=== PATIENT | male | born 1960 | race African-American/Black ===

== ENCOUNTER 2016-10-24 13:14 | Inpatient (IN) ==
[2016-10-24] MEDS ORDERED: 0.9 % Sodium Chloride 1,000 ML IVC ONE (15:14)
--- NOTE | 2016-10-24 15:18 | Emergency Department Note ---
Disposition Clinical Impression: Hypercalcemia Failure to thrive Qualifiers: Failure to thrive age range: in adult Qualified Code(s): R62.7 - Adult failure to thrive Disposition: Admitted As Inpatient Condition: Good Time of Disposition: 17:17 Weakness HPI - General Chief complaint: ED Weakness Stated complaint: Weakness Time Seen by Provider: 10/24/16 15:07 Source: patient Limitations: no limitations Nursing Notes Reviewed: Yes Vital Signs Reviewed: Yes - History of Present Illness HPI Narrative: 56-year-old who presents emergency Department complaining of generalized weakness. Patient has a history of lung cancer was to restart his chemotherapy. Pt Subjective Complaint: generalized weakness/fatigue Onset (ago): day(s) Duration: constant Location: generalized Pain Scale: 0 - Related Data Previous Rx's Medication Instructions Recorded Prochlorperazine Maleate 10 mg PO Q8HR PRN #90 tablet 07/21/16 [Compazine] Furosemide [Lasix] 40 mg PO DAILY #30 tablet 08/01/16 PredniSONE 10 mg PO DAILY 18 Days 08/01/16 Chair, Shower [SHOWER CHAIR] 1 each .ROUTE AD #1 each 08/04/16 Lactose-Reduced Food [Ensure High 1 bottle PO TID #90 can 08/28/16 Protein] Budesonide/Formoterol 160/4.5 1 puff IH BIDR #1 hfa.aer.ad 09/19/16 [Symbicort 160/4.5] Metoprolol [Lopressor] 12.5 mg PO BID #60 tablet 09/19/16 Ondansetron [Zofran] 4 mg PO Q8HR PRN #90 tablet 09/19/16 Dronabinol [Marinol] 2.5 mg PO BID #60 capsule 10/16/16 MetroNIDAZOLE [Flagyl] 500 mg PO TID #30 tablet 10/16/16 OxyCODONE Immed Rel [Roxicodone 5 10 mg PO Q8HR PRN #90 tablet 10/16/16 MG] Allergies Allergy/AdvReac Type Severity Reaction Status Date / Time No Known Allergies Allergy Verified 10/16/16 08:51 Constitutional: Denies: fever, chills, weakness, weight change Eyes: Denies: eye pain, eye discharge, vision change ENT ED: Denies: ear pain, throat pain, dental pain, hearing loss, epistaxis, congestion, dysphagia Cardiovascular: Denies: chest pain, palpitations, dyspnea on exertion, edema, syncope Respiratory: Denies: cough, dyspnea, wheezes, hemoptysis, stridor Gastrointestinal: Reports: other (4 by mouth intake). Denies: abdominal pain, nausea, vomiting, diarrhea, constipation, hematemesis, melena, hematochezia Genitourinary: Denies: urgency, dysuria, frequency, hematuria Musculoskeletal: Denies: back pain, neck pain, arthralgia, myalgia Integumentary: Denies: rash, abrasion, lesions Neurological: Reports: weakness. Denies: headache, numbness, paresthesias, confusion, abnormal gait, vertigo Psychiatric: Denies: anxiety, depression, suicidal thoughts, homicidal thoughts , auditory hallucinations, visual hallucinations Endocrine: Denies: fatigue Hematological/Lymphatic: Denies: easy bleeding, easy bruising Allergic/Immunologic: Denies: facial swelling, urticaria Past Medical History - Past Medical History Medical history: Reports: cancer, hypertension Surgical history: Reports: no surgical history Psychiatric history: Reports: no psych history - Social History Smoking Status: Current every day smoker Smokeless Tobacco Status: No Alcohol use: Reports: heavy Drug use: Reports: none Physical Exam - General Limitations: no limitations General appearance: alert - Head Head exam: atraumatic, normocephalic, normal inspection - Eye Eye exam: Present: normal appearance, PERRL, EOMI - ENT ENT exam: normal exam, normal oropharynx, mucous membranes moist - Neck Neck exam: Present: normal inspection, full ROM, trachea midline - Chest Chest inspection: Present: normal inspection, symmetric chest wall rise - Respiratory Respiratory exam: Present: normal lung sounds bilaterally - Cardiovascular Cardiovascular exam: Present: regular rate, normal rhythm, normal heart sounds - Abdominal Exam Abdominal exam: Present: soft, Non-Tender. Absent: tenderness, distention, guarding, rebound, rigidity - Extremities Exam Extremities exam: Present: normal inspection, full ROM. Absent: tenderness, pedal edema - Expanded Lower Extremity Exam Neurovascular/Tendon exam: Absent: motor deficit, sensory deficit, tendon deficit Gait: not tested/not observed - Back Exam Back exam: Present: normal inspection, full ROM. Absent: tenderness - Neurological Exam Neurological exam: Present: alert, oriented X3 - Psychiatric Psychiatric exam: Present: normal affect, normal mood - Skin Skin exam: Present: warm, dry, intact, normal color Course - Consultations Consultation #1: Discussed with , who gave orders for dexamethasone fluid bolus and Zomeda. Also to admit to hospitalist. Time: 17:16 Consultation #2: Discussed with Randa Aguilar nurse practitioner will admit. Time: 17:36 Vital Signs Temperature 97.4 F L 10/24/16 14:15 Pulse Rate 115 10/24/16 14:15 Respiratory Rate 16 10/24/16 14:15 Blood Pressure 99/74 10/24/16 14:15 O2 Sat by Pulse Oximetry 95 10/24/16 14:15 Temperature 97.4 F L 10/24/16 14:15 Pulse Rate 91 10/24/16 16:40 Respiratory Rate 16 10/24/16 17:46 Blood Pressure 126/93 10/24/16 17:46 O2 Sat by Pulse Oximetry 100 10/24/16 16:40 Oxygen Delivery Oxygen Delivery Room Air Weakness - Lab Data Result diagrams: 10/24/16 16:39 10/24/16 16:39 Lab Results 10/24/16 10/24/16 10/24/16 Range/Units 16:39 16:39 16:39 WBC 9.1 (4.3-11.1) K/mcL RBC 4.11 L (4.19-5.50) M/mcL Hgb 14.1 (12.9-16.9) g/dL Hct 39.3 (37.5-50.1) % MCV 95.6 (83.0-100.0) fL MCH 34.3 H (28.0-33.3) pg MCHC 35.9 H (31.6-35.5) g/dL RDW 12.8 (11.5-14.5) % Plt Count 234 (140-400) K/mcL MPV 9.0 L (9.4-12.4) fL Immature Gran % 0.7 (0-4) % Seg Neutrophils % 65.8 % Lymphocytes % 15.3 % Monocytes % 17.9 % Eosinophils % 0.2 % Basophils % 0.1 % Neutrophils # 6.0 (1.6-8.9) K/mcL Lymphocytes # 1.4 (0.6-4.6) K/mcL Monocytes # 1.6 H (0.0-1.3) K/mcL Eosinophils # 0.0 (0.0-0.6) K/mcL Basophils # 0.0 (0.0-0.2) K/mcL ESR 49 H (0-10) mm/hr Sodium 124 L (136-145) mEq/L Potassium 3.7 (3.5-4.5) mEq/L Chloride 84 L (98-109) mEq/L Carbon Dioxide 23 (19-29) mEq/L BUN 40 H (8-26) mg/dL Creatinine 0.93 (0.72-1.25) mg/dL Est GFR ( Amer) > 60 (> 60) Est GFR (Non-Af Amer) > 60 (> 60) BUN/Creatinine Ratio 43 H (6-26) Glucose 59 L (70-99) mg/dL Calculated Osmolality 266 L (280-300) Lactic Acid (0.5-2.2) mmol/L Calcium 15.6 H* (8.6-10.8) mg/dL Total Bilirubin 1.0 (0.2-1.2) mg/dL AST 34 (5-34) Units/L ALT 13 (0-55) Units/L Alkaline Phosphatase 92 (38-126) Units/L Troponin I (0-0.03) ng/mL Serum Total Protein 7.5 (6.0-8.3) g/dL Albumin 2.8 L (3.5-5.0) g/dL Globulin 4.7 H (2.4-3.5) g/dL Albumin/Globulin Ratio 0.6 L (1.1-2.2) 10/24/16 10/24/16 Range/Units 16:39 16:39 WBC (4.3-11.1) K/mcL RBC (4.19-5.50) M/mcL Hgb (12.9-16.9) g/dL Hct (37.5-50.1) % MCV (83.0-100.0) fL MCH (28.0-33.3) pg MCHC (31.6-35.5) g/dL RDW (11.5-14.5) % Plt Count (140-400) K/mcL MPV (9.4-12.4) fL Immature Gran % (0-4) % Seg Neutrophils % % Lymphocytes % % Monocytes % % Eosinophils % % Basophils % % Neutrophils # (1.6-8.9) K/mcL Lymphocytes # (0.6-4.6) K/mcL Monocytes # (0.0-1.3) K/mcL Eosinophils # (0.0-0.6) K/mcL Basophils # (0.0-0.2) K/mcL ESR (0-10) mm/hr Sodium (136-145) mEq/L Potassium (3.5-4.5) mEq/L Chloride (98-109) mEq/L Carbon Dioxide (19-29) mEq/L BUN (8-26) mg/dL Creatinine (0.72-1.25) mg/dL Est GFR ( Amer) (> 60) Est GFR (Non-Af Amer) (> 60) BUN/Creatinine Ratio (6-26) Glucose (70-99) mg/dL Calculated Osmolality (280-300) Lactic Acid 2.5 H (0.5-2.2) mmol/L Calcium (8.6-10.8) mg/dL Total Bilirubin (0.2-1.2) mg/dL AST (5-34) Units/L ALT (0-55) Units/L Alkaline Phosphatase (38-126) Units/L Troponin I 0.02 (0-0.03) ng/mL Serum Total Protein (6.0-8.3) g/dL Albumin (3.5-5.0) g/dL Globulin (2.4-3.5) g/dL Albumin/Globulin Ratio (1.1-2.2) - Radiology Data Radiology results reviewed: Yes I reviewed the patient's radiology results. Chest X-Ray 10/24/16 15:14 IMPRESSION: 1. There is a small to moderate right-sided pleural effusion. 2. Scattered nodular opacities are seen in the lungs bilaterally. This is better evaluated on the recent CT from 10/03/2016. D/ / Phil Solis MD / Phil Solis MD Interpreting Provider: Phil Solis MD - EKG Data EKG attestation: Yes I reviewed and interpreted this EKG. EKG shows normal: sinus rhythm Rate: tachycardia Rhythm: NSR Interpretation: no acute changes
[2016-10-24 16:45] LABS: Basophils % 0.1 %; Eosinophils % 0.2 %; Hematocrit 39.3 % (37.5-50.1); Hemoglobin 14.1 g/dL (12.9-16.9); Immature Granulocytes % 0.7 % (0-4); Lymphocytes # 1.4 K/mcL (0.6-4.6); Lymphocytes % 15.3 %; Mean Corpuscular HGB Conc 35.9 g/dL (31.6-35.5); Mean Corpuscular Hemoglobin 34.3 pg (28.0-33.3); Mean Corpuscular Volume 95.6 fL (83.0-100.0); Monocytes # 1.6 K/mcL (0.0-1.3); Monocytes % 17.9 %; Platelet Count 234 K/mcL (140-400); Red Blood Count 4.11 M/mcL (4.19-5.50); Red Cell Distribution Width 12.8 % (11.5-14.5); Segmented Neutrophils % 65.8 %
[2016-10-24 17:04] LABS: Alanine Aminotransferase 13 Units/L (0-55); Albumin 2.8 g/dL (3.5-5.0); Albumin/Globulin Ratio 0.6 (1.1-2.2); Alkaline Phosphatase 92 Units/L (38-126); Aspartate Amino Transferase 34 Units/L (5-34); BUN/Creatinine Ratio 43 (6-26); Blood Urea Nitrogen 40 mg/dL (8-26); Carbon Dioxide 23 mEq/L (19-29); Chloride 84 mEq/L (98-109); Globulin 4.7 g/dL (2.4-3.5); Glucose 59 mg/dL (70-99); Osmolality,Calculated 266 (280-300); Potassium 3.7 mEq/L (3.5-4.5); Sodium 124 mEq/L (136-145); Total Protein 7.5 g/dL (6.0-8.3); eGFR For African Americans > 60 (> 60); eGFR For Non-African Americans > 60 (> 60)
[2016-10-24 17:10] LABS: Calcium 15.6 mg/dL (8.6-10.8)
[2016-10-24] MEDS ORDERED: Dexamethasone 4 MG/ML VIAL IVP ONE (17:15)
[2016-10-24] MEDS ORDERED: Zoledronic Acid (Zometa) 4 MG in 0.9 % Sodium Chloride 100 ML IV ONE (17:15)
[2016-10-24] MEDS ORDERED: Naloxone 0.4 MG/ML INJ IVP PRN (21:04)
[2016-10-24] MEDS ORDERED: *HR* Morphine 2 MG/ML SYRINGE IVP PRN (21:11)
[2016-10-24] MEDS ORDERED: Acetaminophen 325 MG TABLET PO PRN (21:11)
[2016-10-24] MEDS ORDERED: Ondansetron 4 MG/2 ML VIAL IVP PRN (21:11)
--- NOTE | 2016-10-24 21:39 | Internal Med History&Physical ---
<Dianne Hinkle - Last Filed: 10/24/16 23:12> Date of Encounter: 10/24/16 Time of Encounter: 21:39 Assessment and Plan (1) Hypercalcemia Current visit: Yes Status: Acute Patient with lab calcium of 15.6. Calcium corrected for albumin 16.5. Elevated calcium likely secondary to patient squamous cell carcinoma of the lung. EKG showed no acute changes. Patient is refusing to communicate with stuff. Unknown if this is secondary to effects from the hypercalcemia. Will continue to monitor patient's mental status. He appears dehydrated on exam. Patient given dose of zomeda in the ED. Will start aggressive IV fluids. 1. Normal saline 200mls/hr 2. Patient given appropriate dose of zomeda in ED 3. Will recheck calcium/ ionized calcium/ albumin in the morning 4. Cardiac monitoring. (2) Clostridium difficile diarrhea Current visit: Yes Status: Acute Patient diagnosed with c.diff 10/16/2016 and started on PO flagyl. Will start IV flagyl and transition to PO if patient okay to swallow. If patient develops worsening diarrhea will start vancomycin. Contact precautions. 1. IV flagyl 2. Contact precautions. (3) Squamous cell carcinoma of lung, stage III Current visit: Yes Status: Acute Patient with history of squamous cell carcinoma of the lung diagnosed 04/2016. Patient is s/p thoracic chemotherapy with cisplatin/etoposide finished 06/2016. Last CT scan done 10/03/2016 showed increase in bilateral lung nodules, new pleural effusion and new inferior anterior mediastinal mass. Last oncology appointment on 10/16/2016 it states that patient was not ready to change his code status at that time or consider hospice. Unable to have code discussion with patient on admission. 1. Consult placed to oncology - Dr. Villalpando called from ED 2. Supportive care with supplemental oxygen as needed, pain medication, fluids 3. Will need to have code discussion, palliative care consult if patient expresses interest. Qualifiers: Laterality: right Qualified Code(s): C34.91 - Malignant neoplasm of unspecified part of right bronchus or lung (4) Hyponatremia Current visit: Yes Status: Acute Patient with chronic hyponatremia, though this is lower than previous. Will monitor. 1. BMP tomorrow (5) Severe protein-calorie malnutrition Current visit: No Status: Chronic Patient is cachectic on exam. Patient takes marinol at home and ensure nutritional supplementation. Will continue marinol and consult nutrition. 1. Marinol continue home dose 2. Consult placed to nutrition (6) Alcohol abuse Current visit: No Status: Chronic (7) Tobacco abuse Current visit: No Status: Chronic (8) DVT prophylaxis Current visit: Yes Status: Acute Lovenox 40mg QD sub-Q for DVT prophylaxis. Internal Medicine - H&P: HPI Chief complaint: Weakness Admitted From: Emergency Dept History of present illness: Mr. Campoverde is a 56 year old male with PMH including lung cancer, GI bleed, chronic anemia, and EtOH use who presents to the ED for generalized weakness. Patient is generally refusing to communicate with staff or physicians on the floor so most history and review of symptoms obtained from ED note and previous documentation. He does shake his head when asked if he has any pain, chest pain , or shortness of breath. 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 Patient is s/p thoracic chemotherapy with cisplatin/etoposide finished 06/2016. Last CT scan done 10/03/2016 showed increase in bilateral lung nodules, new pleural effusion and new inferior anterior mediastinal mass. Last oncology appointment on 10/16/2016 it states that patient was not ready to change his code status at that time or consider hospice. Unable to have code discussion with patient on admission. Patient was also recently diagnosed with C. diff on 10/16/2016 and started on PO flagyl In the ED, patient was afebrile, vital signs within normal limits. Labs revealed sodium of 124, calcium of 15.6 and lactic acid of 2.5. Dr. Villalpando ( oncology) consulted from the ED. She recommended admission, fluid bolus, dexamethasone and zomeda. On exam, patient does open eyes to voice but refuses to talk. He is cachectic and appears very weak. He has a wet cough during exam. Lungs with decreased air movement, no wheezing, crackles or rhonci. Heart regular rate and rhythm. Abdomen soft, nontender. Past Med Surg Social Fam HX - Past Medical History Medical history: cancer, hypertension Psychiatric history: no psych history - Past Surgical History Surgical History: no surgical history - Social History Smoking Status: Current every day smoker Smokeless Tobacco Status: No Alcohol use: heavy Drug use: none - Family History Mother Adopted: No Family Member Ethnicity: Non- Living Status: Still Living Hx Family Cardiac Disorders: Yes Internal Medicine - H&P: Meds Prochlorperazine Maleate [Compazine] 10 mg PO Q8HR PRN #90 tablet 07/21/16 [Rx] Furosemide [Lasix] 40 mg PO DAILY #30 tablet 08/01/16 [Rx] PredniSONE 10 mg PO DAILY 18 Days 08/01/16 [Rx] Lactose-Reduced Food [Ensure High Protein] 1 bottle PO TID #90 can 08/28/16 [Rx] Budesonide/Formoterol 160/4.5 [Symbicort 160/4.5] 1 puff IH BIDR #1 hfa.aer.ad 09/19/16 [Rx] Metoprolol [Lopressor] 12.5 mg PO BID #60 tablet 09/19/16 [Rx] Ondansetron [Zofran] 4 mg PO Q8HR PRN #90 tablet 09/19/16 [Rx] Dronabinol [Marinol] 2.5 mg PO BID #60 capsule 10/16/16 [Rx] OxyCODONE Immed Rel [Roxicodone 5 MG] 10 mg PO Q8HR PRN #90 tablet 10/16/16 [Rx] Aspirin Enteric Coated [Aspirin EC] 81 mg PO DAILY 10/24/16 [History] Atorvastatin Calcium [Lipitor] 20 mg PO HS 10/24/16 [History] Folic Acid 1 mg PO DAILY 10/24/16 [History] Hydrochlorothiazide 12.5 mg PO DAILY 10/24/16 [History] Allergies No Known Allergies Allergy (Verified 10/16/16 08:51) ROS unobtainable: other (Patient refuses to communicate) All Systems PM: A 10-system review of systems was performed and is negative for pertinent findings except as documented above in the HPI. - Constitutional Constitutional: no fever(s) - Cardiovascular Cardiovascular ROS IM: no chest pain - Respiratory Respiratory: no dyspnea - Gastrointestinal Gastrointestinal: no abdominal pain - Constitutional Vitals: Temp Pulse Resp BP Pulse Ox 97.1 F L 77 15 138/96 97 10/24/16 18:30 10/24/16 18:30 10/24/16 18:30 10/24/16 18:30 10/24/16 18:30 General appearance: Present: cachectic. Absent: cooperative - Head Head exam: Present: atraumatic, normal inspection, normocephalic - Eye Eye exam: Present: normal appearance - ENT ENT exam: Present: mucous membranes dry - Respiratory Respiratory exam: Absent: decreased breath sounds, rales, respiratory distress, rhonchi, wheezes, tachypnea - Cardiovascular Cardiovascular exam: Present: RRR - GI/Abdominal GI/Abdominal exam: Present: soft. Absent: rebound, rigid, tenderness - Extremities Exam Extremities exam: Present: normal inspection. Absent: pedal edema - Neurological Exam Neurological exam: Present: alert Internal Med - H&P Results - Labs CBC & Chem 7: 10/24/16 16:39 10/24/16 16:39 <Kellie Ross - Last Filed: 10/25/16 06:15> Date of Encounter: 10/24/16 Assessment and Plan (1) Hypercalcemia of malignancy Current visit: Yes Status: Acute Likely due to squamous cell lung cancer. Treat with IV normal saline infusion and zolidronic acid. Oncology consult Internal Medicine - H&P: HPI History of present illness: Mr. Campoverde is a 56 year old male All Systems PM: A 10-system review of systems was performed and is negative for pertinent findings except as documented above in the HPI. - Constitutional Vitals: Temp Pulse Resp BP Pulse Ox 97.5 F L 96 16 129/85 94 L 10/25/16 03:55 10/25/16 03:55 10/25/16 03:55 10/25/16 03:55 10/25/16 03:55 Internal Med - H&P Results - Labs CBC & Chem 7: 10/24/16 16:39 10/25/16 04:15 Labs: BMP 10/25/16 04:15 Sodium 129 L Potassium 3.4 L Chloride 91 L Carbon Dioxide 23 BUN 44 H Creatinine 0.89 Glucose 91 Calcium 13.8 H* Urine 10/25/16 Range/Units 03:55 Urine Color Yellow (Yellow) Urine Clarity Clear (Clear) Urine pH 5.5 (5.0-8.0) pH Units Ur Specific [place] 1.018 (1.010-1.025) Urine Protein Negative (Neg-Trace) mg/dL Urine Glucose (UA) Normal (Normal) mg/dL - Impressions ITS Impressions Chest X-Ray 10/24/16 15:14 IMPRESSION: 1. There is a small to moderate right-sided pleural effusion. 2. Scattered nodular opacities are seen in the lungs bilaterally. This is better evaluated on the recent CT from 10/03/2016. D/ / Phil Solis MD / Phil Solis MD Interpreting Provider: Phil Solis MD - Attending Attestation I performed a history and physical examination of the patient and discussed his management with the Resident/Biological Sciences Instructor (Dr Hinkle). I reviewed the residents note and agree with the documented findings and plan of care, with additions as below. 56 y/o male with squamous cell lung cancer, presented with generalized weakness and noted to have hypercalcemia corrected calcium of 16.5, likely related to squamous cell lung cancer. O/E He is cachectic and confused. Will treat him with intravenous normal saline infusion and zoledronic acid. Monitor calcium levels. Oncology consultation.
[2016-10-24] MEDS: Budesonide/Formoterol 160/4.5 MDI IH SCH (23:11)
[2016-10-24] MEDS: 0.9 % Sodium Chloride 1,000 ML IVC SCH (23:51)
[2016-10-25] MEDS: MetroNIDAZOLE 500 MG/100 ML 500 MG/100 ML BAG IVPB SCH ×3 (00:59→16:50)
[2016-10-25 04:47] LABS: Ionized Calcium 2.02 mmol/L (1.15-1.35)
[2016-10-25 04:58] LABS: BUN/Creatinine Ratio 49 (6-26); Blood Urea Nitrogen 44 mg/dL (8-26); Carbon Dioxide 23 mEq/L (19-29); Chloride 91 mEq/L (98-109); Glucose 91 mg/dL (70-99); Magnesium 1.3 mg/dL (1.6-2.6); Osmolality,Calculated 279 (280-300); Phosphorous 3.8 mg/dL (2.3-4.7); Potassium 3.4 mEq/L (3.5-4.5); Sodium 129 mEq/L (136-145); eGFR For African Americans > 60 (> 60); eGFR For Non-African Americans > 60 (> 60)
[2016-10-25 05:12] LABS: Calcium 13.8 mg/dL (8.6-10.8)
[2016-10-25 05:32] LABS: Bilirubin,Urine Negative (Negative); Blood,Urine Negative (Negative); Clarity,Urine Clear (Clear); Color,Urine Yellow (Yellow); Glucose,Urine (UA) Normal (Normal); Ketones,Urine 15 mg/dL (Negative); Leukocyte Esterase,Urine Negative (Negative); Nitrite,Urine Negative (Negative); PH,Urine 5.5 pH Units (5.0-8.0); Protein,Urine Negative (Neg-Trace); Specific Gravity,Urine 1.018 (1.010-1.025); Urobilinogen,Urine Normal (Normal)
[2016-10-25] MEDS: 0.9 % Sodium Chloride 1,000 ML IVC SCH ×4 (06:25→21:10)
[2016-10-25] MEDS: Budesonide/Formoterol 160/4.5 MDI IH SCH ×2 (07:50→21:54)
[2016-10-25] MEDS ORDERED: hydroCHLOROthiazide 25 MG TABLET PO SCH (09:00)
[2016-10-25] MEDS: Aspirin Enteric Coated 81 MG Tablet PO SCH (09:36)
[2016-10-25] MEDS: Folic Acid 1 MG TABLET PO SCH (09:36)
[2016-10-25] MEDS: *HR* Enoxaparin 40 MG/0.4 ML SYRINGE SQ SCH (09:40)
[2016-10-25] MEDS: (Ensure High Protein] 1 BOTTLE) PO SCH ×2 (09:42→13:44)
[2016-10-25] MEDS ORDERED: Magnesium Sulfate 2 GM in D5% in Water 100 ML IVPB ONE (13:48)
--- NOTE | 2016-10-25 13:50 | Electrocardiograph Report ---
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
--- NOTE | 2016-10-25 14:14 | Internal Med Progress Note ---
Date of Encounter: 10/25/16 Time of Encounter: 14:12 - Assessment and plan (1) Clostridium difficile diarrhea Current Visit: Yes Status: Acute Assessment and plan: Patient diagnosed with c.diff 10/16/2016 and started on PO flagyl. Will conitnue IV flagyl for now. If patient develops worsening diarrhea will start vancomycin. Contact precautions. (2) Hypercalcemia of malignancy Current Visit: Yes Status: Acute Assessment and plan: was given Zomeda at ED. continue IVF for now, will decrease the rate to 125 today. calcium levels have improved to 13 today. contineu to monitor. asymptomatic at present. most likely a paraneoplastic syndrome from lung cancer, oncology has been consulted (3) Hyponatremia Current Visit: Yes Status: Acute Assessment and plan: may be SIADH from lung cancer, however has imporved with IVF will send urne sodium today, cotnineu to monitor the sodium levels asymptomatic. (4) Squamous cell carcinoma of lung, stage III Current Visit: Yes Status: Acute Assessment and plan: Patient with history of squamous cell carcinoma of the lung diagnosed 04/2016. Patient is s/p thoracic chemotherapy with cisplatin/etoposide finished 06/2016. Last CT scan done 10/03/2016 showed increase in bilateral lung nodules, new pleural effusion and new inferior anterior mediastinal mass. Last oncology appointment on 10/16/2016 it states that patient was not ready to change his code status at that time or consider hospice. 1. Consult placed to oncology - Dr. Villalpando called from ED, will follow recommendation 2. Supportive care with supplemental oxygen as needed, pain medication, fluids Qualifiers: Laterality: right Qualified Code(s): C34.91 - Malignant neoplasm of unspecified part of right bronchus or lung (5) Severe protein-calorie malnutrition Current Visit: No Status: Chronic Assessment and plan: nutrition consult possibel from malignancy - Time Spent With Patient 25 - 35 minutes - Subjective Interval history: seen at the bedside, denies any complains, appears cachectic he says he was not feeling good that's why he come here he was found to have hypercalcemia, currently on IVF, calcium level at 13, better than yest. - Constitutional Vitals: Temp Pulse Resp BP Pulse Ox 97.3 F L 99 18 131/70 100 10/25/16 12:11 10/25/16 07:21 10/25/16 12:11 10/25/16 12:11 10/25/16 07:21 General appearance: Present: cachectic, A&O X 3, no acute distress. Absent: cooperative Exam: - Head Head exam: Present: atraumatic, normal inspection, normocephalic - Eye Eye exam: Present: normal appearance - ENT ENT exam: Present: mucous membranes dry - Respiratory Respiratory exam: Absent: decreased breath sounds, rales, respiratory distress, rhonchi, wheezes, tachypnea - Cardiovascular Cardiovascular exam: Present: RRR - GI/Abdominal GI/Abdominal exam: Present: soft. Absent: rebound, rigid, tenderness - Extremities Exam Extremities exam: Present: normal inspection. Absent: pedal edema - Neurological Exam Neurological exam: Present: alert Internal Medicine: Result - Labs CBC & Chem 7: 10/24/16 16:39 10/25/16 04:15 Labs: BMP 10/25/16 04:15 Sodium 129 L Potassium 3.4 L Chloride 91 L Carbon Dioxide 23 BUN 44 H Creatinine 0.89 Glucose 91 Calcium 13.8 H* Urine 10/25/16 Range/Units 03:55 Urine Color Yellow (Yellow) Urine Clarity Clear (Clear) Urine pH 5.5 (5.0-8.0) pH Units Ur Specific [place] 1.018 (1.010-1.025) Urine Protein Negative (Neg-Trace) mg/dL Urine Glucose (UA) Normal (Normal) mg/dL Consult Discharge Plan - Plan Referrals: Peng Jarquin [Non-Partnered Physician] -
--- NOTE | 2016-10-25 17:31 | Event Note ---
Date of Encounter: 10/25/16 Time of Encounter: 18:00 Patient with locally advanced lung ca, squamous cell s/p TOBACCO ROLLER with progresion in reimaging studies presented with hypercalcemia, s/p Rx with hydration, steroids and zolendronic acid per our recommendations at ER. Labs improving to ca-13.8 today. Will assess patient today, full consultation to follow.
--- NOTE | 2016-10-25 18:35 | Oncology Inp Consult Note ---
Date of Encounter: 10/25/16 Time of Encounter: 17:00 Assessment and Plan (1) Squamous cell carcinoma of lung, stage III Status: Acute Assessment and plan: Hypercalcemia, progressive bilateral lung nodules suggestive of disease progression, hospice care was discussed previously due to patient's general condition. He would like to discuss further therapy as an outpatient. Hypercalcemia of malignancy, status post his zoledronic acid. Continue IV hydration. Discontinue HCTZ. Dexamethasone IV. C diff 10/16/16 on flagyl- symptom control Consider palliative care/hospice consult while in-patient. He desires follow up and re-evaluation at later date with oncology. Will discuss outcome at later date once mental status improves. Qualifiers: Laterality: right Qualified Code(s): C34.91 - Malignant neoplasm of unspecified part of right bronchus or lung - Data of Consult Requesting Physician: Michael Taveras MD Primary Care Provider: PCP NO - Consult Narrative Reason for consult: lung ca, hypercalcemia History of present illness: Mr. Campoverde is a 56 year old male with known medical history of lung cancer, squamous cell carcinoma initially diagnosed as stage III status post concurrent chemoradiation therapy, with ongoing alcohol abuse, poor oral intake, failure to thrive, reimaging studies in September 2016 bilateral nodules concerning for progressive disease. Patient also had episodes of diarrhea and C. difficile was positive was started on Flagyl. Further treatment was discussed at that time, hospice was offered to him previously but patient had declined. Patient was stabilized due to generalized weakness, noted to have a serum calcium elevated at 15.8 on admission. He is treated with steroids, IV hydration status post zoledronic acid on . Calcium is improved to 13.8. Patient is awake but fatigued able to answer some questions but falling asleep. He denied any pain. He does not have any diarrhea. Review of systems not performed due to patient's mental status. Past Med Surg Social Fam HX - Past Medical History Medical history: cancer, hypertension Psychiatric history: no psych history - Past Surgical History Surgical History: no surgical history - Social History Smoking Status: Current every day smoker Smokeless Tobacco Status: No Alcohol use: heavy Drug use: none - Family History Mother Adopted: No Family Member Ethnicity: Non- Living Status: Still Living Hx Family Cardiac Disorders: Yes Medications and Allergies Prochlorperazine Maleate [Compazine] 10 mg PO Q8HR PRN #90 tablet 07/21/16 [Rx] Furosemide [Lasix] 40 mg PO DAILY #30 tablet 08/01/16 [Rx] PredniSONE 10 mg PO DAILY 18 Days 08/01/16 [Rx] Lactose-Reduced Food [Ensure High Protein] 1 bottle PO TID #90 can 08/28/16 [Rx] Budesonide/Formoterol 160/4.5 [Symbicort 160/4.5] 1 puff IH BIDR #1 hfa.aer.ad 09/19/16 [Rx] Metoprolol [Lopressor] 12.5 mg PO BID #60 tablet 09/19/16 [Rx] Ondansetron [Zofran] 4 mg PO Q8HR PRN #90 tablet 09/19/16 [Rx] Dronabinol [Marinol] 2.5 mg PO BID #60 capsule 10/16/16 [Rx] OxyCODONE Immed Rel [Roxicodone 5 MG] 10 mg PO Q8HR PRN #90 tablet 10/16/16 [Rx] Aspirin Enteric Coated [Aspirin EC] 81 mg PO DAILY 10/24/16 [History] Atorvastatin Calcium [Lipitor] 20 mg PO HS 10/24/16 [History] Folic Acid 1 mg PO DAILY 10/24/16 [History] Hydrochlorothiazide 12.5 mg PO DAILY 10/24/16 [History] Allergies No Known Allergies Allergy (Verified 10/16/16 08:51) Review of systems: as above Oncology - Exam - Constitutional Vitals: Temp Pulse Resp BP Pulse Ox 97.4 F L 80 16 159/93 93 L 10/25/16 16:20 10/25/16 16:20 10/25/16 16:20 10/25/16 16:20 10/25/16 16:20 Exam: Thin built cachectic not in pain or distress appears comfortable. HEENT anicteric sclera dry mucosa Neck no palpable lymphadenopathy Chest bilateral decreased air entry CVS S1S2 reg rate and rhythm Abdomen soft nontender no hepatosplenomegaly Extremities no edema. Oncology - Results - Labs Labs: [facility] 10/25/16 04:15 Sodium 129 L Potassium 3.4 L Chloride 91 L Carbon Dioxide 23 BUN 44 H Creatinine 0.89 Glucose 91 Calcium 13.8 H* Urine 03/08/17 Range/Units 03:55 Urine Color Yellow (Yellow) Urine Clarity Clear (Clear) Urine pH 5.5 (5.0-8.0) pH Units Ur Specific Mineral 1.018 (1.010-1.025) Urine Protein Negative (Neg-Trace) mg/dL Urine Glucose (UA) Normal (Normal) mg/dL - Imaging and Cardiology CT scan - chest Status: image reviewed by me Consult Discharge Plan - Plan Referrals: Peng Jarquin [Non-Partnered Physician] -
[2016-10-26] MEDS: MetroNIDAZOLE 500 MG/100 ML 500 MG/100 ML BAG IVPB SCH ×3 (00:56→17:06)
[2016-10-26] MEDS: *HR* Enoxaparin 40 MG/0.4 ML SYRINGE SQ SCH (06:12)
[2016-10-26] MEDS: 0.9 % Sodium Chloride 1,000 ML IVC SCH ×2 (06:27→08:11)
[2016-10-26] MEDS: Aspirin Enteric Coated 81 MG Tablet PO SCH (08:10)
[2016-10-26] MEDS: Folic Acid 1 MG TABLET PO SCH (08:10)
[2016-10-26] MEDS ORDERED: Aminoglycoside Consult 1 EACH MC ONE (08:30)
[2016-10-26] MEDS ORDERED: Furosemide 40 MG/4 ML VIAL IVP ONE (09:36)
[2016-10-26 10:27] LABS: Basophils % 0.1 %; Hematocrit 31.1 % (37.5-50.1); Hemoglobin 11.3 g/dL (12.9-16.9); Immature Granulocytes % 0.7 % (0-4); Lymphocytes # 1.2 K/mcL (0.6-4.6); Lymphocytes % 9.8 %; Mean Corpuscular HGB Conc 36.3 g/dL (31.6-35.5); Mean Corpuscular Hemoglobin 34.2 pg (28.0-33.3); Mean Corpuscular Volume 94.2 fL (83.0-100.0); Mean Platelet Volume 9.3 fL (9.4-12.4); Monocytes # 1.8 K/mcL (0.0-1.3); Monocytes % 14.3 %; Neutrophils # 9.3 K/mcL (1.6-8.9); Platelet Count 242 K/mcL (140-400); Red Cell Distribution Width 12.4 % (11.5-14.5); Segmented Neutrophils % 75.1 %
[2016-10-26 10:40] LABS: BUN/Creatinine Ratio 46 (6-26); Blood Urea Nitrogen 36 mg/dL (8-26); Calcium 11.8 mg/dL (8.6-10.8); Carbon Dioxide 24 mEq/L (19-29); Chloride 104 mEq/L (98-109); Glucose 120 mg/dL (70-99); Osmolality,Calculated 288 (280-300); Potassium 3.4 mEq/L (3.5-4.5); Sodium 134 mEq/L (136-145); eGFR For African Americans > 60 (> 60); eGFR For Non-African Americans > 60 (> 60)
[2016-10-26] MEDS: Budesonide/Formoterol 160/4.5 MDI IH SCH ×2 (11:01→19:55)
[2016-10-26] MEDS: Ipratropium/Albuterol Neb 3 ML IH PRN (11:19)
[2016-10-26 11:27] LABS: INR 1.5
--- NOTE | 2016-10-26 13:23 | Palliative - Consult Note ---
Date of Encounter: 10/26/16 Time of Encounter: 10:30 - Assessment and Plan (1) Cancer associated pain Current Visit: Yes Status: Acute Assessment and plan: Patient has Oxycodone ordered as per home dose. He has not utilized this and currently states he is not having discomfort. Monitor (2) Dyspnea Current Visit: No Status: Resolved Assessment and plan: D/W Hospitalist - will be receiving thoracentesis as well as diuretics today. Receiving supportive oxygen. Monitor Qualifiers: Dyspnea type: unspecified Qualified Code(s): R06.00 - Dyspnea, unspecified (3) Severe protein-calorie malnutrition Current Visit: No Status: Chronic Assessment and plan: Dieticians following closely - providing supplements. Patient on Marinol as well. NPO currently for test. Will follow (4) Counseling regarding advanced care planning and goals of care Current Visit: Yes Status: Acute Assessment and plan: Appears pt mental status is improving, but inappropriate statements at times and does not answer questions consistently. Reached pt mother's by phone, Steph, who pt states he lives with. She is unable to come to hospital today , but will be here tomorrow to meet at [phone]. Palliative-CN HPI - Data of Consult Consult date: 10/26/16 Requesting Physician: Dino Ceballos Primary Care Provider: PCP NO - Consult Narrative History of present illness: Mr. Campoverde is a 56 year old male with a history of squamous cell lung cancer who presented with increasing weakness. Patient is poor historian at this time, and information gathered from chart review. Hypercalcemia (15.6 on admission) was treated with IV fluids/Zomeda.shortly after arrival to hospital and decreased to 11.8 today. He is followed at the [facility] and their latest notes have been reviewed. He also had recent c-diff infection. Patient has been declining at home with increasing weakness, confusion, and poor intake. Upon my visit, he awakens and answers most questions, but these are inappropriate at times. It does appear however, that this is improved from admission. He denies any pain, nausea, vomiting, anxiety, but states he is short of breath. Audible rhonchi noted. States he lives with his mother and "she is in better shape than I am". No family present. CC: Dino Ceballos Past Med Surg Social Fam HX - Past Medical History Medical history: cancer, hypertension Psychiatric history: no psych history - Past Surgical History Surgical History: no surgical history - Social History Smoking Status: Current every day smoker Smokeless Tobacco Status: No Alcohol use: heavy Drug use: none - Family History Mother Adopted: No Family Member Ethnicity: Non- Living Status: Still Living Hx Family Cardiac Disorders: Yes Medications and Allergies Prochlorperazine Maleate [Compazine] 10 mg PO Q8HR PRN #90 tablet 07/21/16 [Rx] Furosemide [Lasix] 40 mg PO DAILY #30 tablet 08/01/16 [Rx] PredniSONE 10 mg PO DAILY 18 Days 08/01/16 [Rx] Lactose-Reduced Food [Ensure High Protein] 1 bottle PO TID #90 can 08/28/16 [Rx] Budesonide/Formoterol 160/4.5 [Symbicort 160/4.5] 1 puff IH BIDR #1 hfa.aer.ad 09/19/16 [Rx] Metoprolol [Lopressor] 12.5 mg PO BID #60 tablet 09/19/16 [Rx] Ondansetron [Zofran] 4 mg PO Q8HR PRN #90 tablet 09/19/16 [Rx] Dronabinol [Marinol] 2.5 mg PO BID #60 capsule 10/16/16 [Rx] OxyCODONE Immed Rel [Roxicodone 5 MG] 10 mg PO Q8HR PRN #90 tablet 10/16/16 [Rx] Aspirin Enteric Coated [Aspirin EC] 81 mg PO DAILY 10/24/16 [History] Atorvastatin Calcium [Lipitor] 20 mg PO HS 10/24/16 [History] Folic Acid 1 mg PO DAILY 10/24/16 [History] Hydrochlorothiazide 12.5 mg PO DAILY 10/24/16 [History] Allergies No Known Allergies Allergy (Verified 10/16/16 08:51) ROS unobtainable: due to mental status Palliative Care-Exam - Constitutional Vitals: Temp Pulse Resp BP Pulse Ox 98.1 F 97 22 118/94 100 10/26/16 10:31 10/26/16 10:31 10/26/16 10:31 10/26/16 10:31 10/26/16 10:31 General appearance: Present: no acute distress - Head Head Exam: Present: normal inspection, normocephalic - Eye Eye exam: Present: normal appearance, PERRL - Respiratory Additional comments: Lungs with rhonchi throughout. Breath sounds diminished RLL - Cardiovascular Cardiovascular exam: Present: +S1, +S2 - GI/Abdominal Exam GI/Abdominal exam: Present: normal bowel sounds, soft - Catheter Type: Urethral (Reid) Additional comments: Voids per urinal - Extremities Exam Extremities exam: Present: normal capillary refill, normal inspection - Neurological Exam Neurological exam: Present: alert Additional comments: Oriented to name, can tell me his is in hospital but cannot recall any events over the last few days. Reoriented to time and situation. Follows simple commands. - Psychiatric Psychiatric exam: Present: flat affect, normal mood - Skin Skin exam: Present: dry, normal color, warm Internal Medicine - CN: Reslt - Labs CBC & Chem 7: 10/26/16 10:19 10/26/16 10:19 Labs: Short CBC 10/26/16 Range/Units 10:19 WBC 12.4 H (4.3-11.1) K/mcL Hgb 11.3 L D (12.9-16.9) g/dL Hct 31.1 L (37.5-50.1) % Plt Count 242 (140-400) K/mcL Neutrophils # 9.3 H (1.6-8.9) K/mcL BMP 10/26/16 10:19 Sodium 134 L Potassium 3.4 L Chloride 104 Carbon Dioxide 24 BUN 36 H Creatinine 0.79 Glucose 120 H Calcium 11.8 H - ABG Interpretation ABG results: PT/INR, D-dimer PT 16.0 Seconds (9.4-12.1) H 10/26/16 11:15 - Impressions Impressions Chest X-Ray 10/26/16 09:36 IMPRESSION: Large right pleural effusion increased in size. Upper zone predominant airspace disease in the left lung increased. D/ / Armando Lee MD / Armando Lee MD Interpreting Provider: Armando Lee MD Consult Discharge Plan - Plan Referrals: Peng Jarquin [Non-Partnered Physician] - Palliative Quality Palliative Quality: Screen for Code Status: NA (pt confused), Screen for Goals of Care: NA, Screen for Pain: Yes, If Pain Regimen Started, Initiate Bowel Regimen: NA, Screen for Nausea/Vomitting: Yes
--- NOTE | 2016-10-26 15:24 | Internal Med Progress Note ---
Date of Encounter: 10/26/16 Time of Encounter: 15:21 - Assessment and plan (1) Clostridium difficile diarrhea Current Visit: Yes Status: Acute Assessment and plan: Patient diagnosed with c.diff 10/16/2016 and started on PO flagyl. Will conitnue IV flagyl for now. If patient develops worsening diarrhea will start vancomycin. Contact precautions. (2) Hypercalcemia of malignancy Current Visit: Yes Status: Acute Assessment and plan: was given Zomeda at ED. Patient was treated with IV fluids, calcium today much improved at 11. Today noted to be in volume overload, chest x-ray shows large right-sided effusion. Hence, we will stop IV fluids for now. 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 Improved with IV fluids, less likely SIADH, urine sodium is 21. (4) Squamous cell carcinoma of lung, stage III Current Visit: Yes Status: Acute Assessment and plan: Patient with history of squamous cell carcinoma of the lung diagnosed 04/2016. Patient is s/p thoracic chemotherapy with cisplatin/etoposide finished 06/2016. Last CT scan done 10/03/2016 showed increase in bilateral lung nodules, new pleural effusion and new inferior anterior mediastinal mass. Last oncology appointment on 10/16/2016 it states that patient was not ready to change his code status at that time or consider hospice. 1. Consult placed to oncology - Dr. Villalpando called from ED, will follow recommendation 2. Supportive care with supplemental oxygen as needed, pain medication, Qualifiers: Laterality: right Qualified Code(s): C34.91 - Malignant neoplasm of unspecified part of right bronchus or lung (5) Severe protein-calorie malnutrition Current Visit: No Status: Chronic Assessment and plan: nutrition consult possibel from malignancy (6) Hypoxia Current Visit: Yes Status: Acute Assessment and plan: in the morning, he was noted to be the setting and was saturating 91-93% on 3 L of oxygen. Chest x-ray was done which showed large right pleural effusion. I was consulted for thoracentesis. ~900 cc of pleural fluid was drained, was given one dose of lasix. will continue to monitor. its probably iatrogenic from jessica IVF that was given for hypercalcemia (7) HAP (hospital-acquired pneumonia) Current Visit: Yes Status: Acute Assessment and plan: CXR shows new infiltrate on the left upper lobe. there is a mild bump in wbc and patinet c/o cough with productive sputum given immunocompromised state with concurrent chemotherapy and progresion of the disease, will start emperically on broad spectrum antibiotics sputum for gram stain and cx. will de- escalate as able. (8) Counseling regarding advanced care planning and goals of care Current Visit: Yes Status: Acute Assessment and plan: he says he feels very sad and does not know what to do or say palliative has been consulted and awaiting meeting with his mother he was offered hospice before however he had declined as per oncology. currently,he may qualify for hospice given his general condition and jessica progression of the disease. will follow with palliative care. - Time Spent With Patient 25 - 35 minutes - Subjective Interval history: seen at the bedside, patient seems to be in mild respiratory distress , complaining of mild shortness of breath. says that he is very sad and does not know what to say. Requiring 5 L of oxygen to maintain sats 90-93%. Also complains of cough with productive sputum. IV fluids and was continued for hypercalcemia secondary to malignancy, calcium today improved at 11. he has no appetite, not seen by nutrition yet. - Constitutional Vitals: Temp Pulse Resp BP Pulse Ox 97.7 F 92 16 113/67 92 L 10/26/16 14:42 10/26/16 14:42 10/26/16 14:42 10/26/16 14:42 10/26/16 14:42 General appearance: Present: cachectic, A&O X 3, no acute distress. Absent: cooperative Exam: HEENT anicteric sclera dry mucosa Neck no palpable lymphadenopathy Chest decreased breath sounds in the right side, creptns on the left side. CVS S1S2 reg rate and rhythm Abdomen soft nontender no hepatosplenomegaly Extremities no edema. neuro- alert and awake,no focal neuro defecits. Internal Medicine: Result - Labs CBC & Chem 7: 10/26/16 10:19 10/26/16 10:19 Labs: Short CBC 10/26/16 Range/Units 10:19 WBC 12.4 H (4.3-11.1) K/mcL Hgb 11.3 L D (12.9-16.9) g/dL Hct 31.1 L (37.5-50.1) % Plt Count 242 (140-400) K/mcL Neutrophils # 9.3 H (1.6-8.9) K/mcL BMP 10/26/16 10:19 Sodium 134 L Potassium 3.4 L Chloride 104 Carbon Dioxide 24 BUN 36 H Creatinine 0.79 Glucose 120 H Calcium 11.8 H - ABG Interpretation ABG results: PT/INR, D-dimer PT 16.0 Seconds (9.4-12.1) H 10/26/16 11:15 - Impressions Impressions Thoracentesis Ultrasound 10/26/16 00:00 IMPRESSION: Successful ultrasound guided thoracentesis. D/ / Dusty Dennis MD / Dusty Dennis MD Interpreting Provider: Dusty Dennis MD Chest X-Ray 10/26/16 09:36 IMPRESSION: Large right pleural effusion increased in size. Upper zone predominant airspace disease in the left lung increased. D/ / Armando Lee MD / Armando Lee MD Interpreting Provider: Armando Lee MD Consult Discharge Plan - Plan Referrals: Peng Jarquin [Non-Partnered Physician] -
[2016-10-26] MEDS ORDERED: Vancomycin 1,000 MG in D5% in Water 250 ML IVPB SCH (16:22)
[2016-10-26] MEDS: Vancomycin 500 MG in D5% in Water (Mini-Bag+) 100 ML IVPB SCH (17:00)
[2016-10-26 17:03] LABS: Appearance of Body Fluid Slightly Hazy (Clear)
[2016-10-26 17:04] LABS: Volume of Body Fluid 950 mL
[2016-10-26] MEDS: Piperacillin/Tazobactam 3.375 GM in D5% in Water (Mini-Bag+) 100 ML IVPB SCH (17:07)
[2016-10-26 17:53] LABS: Glucose,Pleural Fluid 111 mg/dL (No Ref Range); LDH,Pleural Fluid 678 Units/L (No Ref Range)
[2016-10-27] MEDS: MetroNIDAZOLE 500 MG/100 ML 500 MG/100 ML BAG IVPB SCH ×3 (04:09→17:21)
[2016-10-27] MEDS: Piperacillin/Tazobactam 3.375 GM in D5% in Water (Mini-Bag+) 100 ML IVPB SCH ×3 (04:10→20:17)
[2016-10-27] MEDS: *HR* Enoxaparin 40 MG/0.4 ML SYRINGE SQ SCH (05:28)
[2016-10-27 09:55] LABS: Hematocrit 33.7 % (37.5-50.1); Immature Granulocytes % 0.5 % (0-4); Lymphocytes # 1.4 K/mcL (0.6-4.6); Lymphocytes % 16.2 %; Mean Corpuscular HGB Conc 35.6 g/dL (31.6-35.5); Mean Corpuscular Hemoglobin 34.3 pg (28.0-33.3); Mean Corpuscular Volume 96.3 fL (83.0-100.0); Mean Platelet Volume 9.4 fL (9.4-12.4); Monocytes # 1.1 K/mcL (0.0-1.3); Monocytes % 12.8 %; Neutrophils # 6.2 K/mcL (1.6-8.9); Platelet Count 222 K/mcL (140-400); Red Cell Distribution Width 13.2 % (11.5-14.5); Segmented Neutrophils % 70.5 %
[2016-10-27 10:07] LABS: BUN/Creatinine Ratio 34 (6-26); Blood Urea Nitrogen 34 mg/dL (8-26); Calcium 11.5 mg/dL (8.6-10.8); Carbon Dioxide 26 mEq/L (19-29); Chloride 102 mEq/L (98-109); Glucose 97 mg/dL (70-99); Osmolality,Calculated 294 (280-300); Potassium 3.1 mEq/L (3.5-4.5); Sodium 138 mEq/L (136-145); eGFR For African Americans > 60 (> 60); eGFR For Non-African Americans > 60 (> 60)
[2016-10-27] MEDS: Folic Acid 1 MG TABLET PO SCH (10:08)
[2016-10-27] MEDS: Aspirin Enteric Coated 81 MG Tablet PO SCH (10:08)
--- NOTE | 2016-10-27 10:46 | Palliative Progress Note ---
Date of Encounter: 10/27/16 Time of Encounter: 10:40 - Assessment and plan (1) Cancer associated pain Current Visit: Yes Status: Acute Assessment and plan: Continue current [place], has not required last 24 hours (2) Dyspnea Current Visit: No Status: Resolved Assessment and plan: Improved today after thoracentesis and IV Lasix. Continue supportive oxygen. Qualifiers: Dyspnea type: unspecified Qualified Code(s): R06.00 - Dyspnea, unspecified (3) Severe protein-calorie malnutrition Current Visit: No Status: Chronic Assessment and plan: Continue to encourage supplements and po intake as tolerated. Did eat most of eggs for breakfast. Has supplement on ice at bedside. (4) Counseling regarding advanced care planning and goals of care Current Visit: Yes Status: Acute Assessment and plan: Long meeting with pt, his mother and brother regarding goals of care. Patient acknowledged that he knows his disease is worse, and he had not been eating well and has been falling and weaker at home. Patients mother still working a few hours a day in the evening and brother works time stamp assembler 2nd shift, so there is no consistent caregiver and mother limited r/t age, frailty, and hearing deficit. Patient understands that there is little left to offer for treatment options for cancer, and is agreeable to ECF placement at [facility] and is agreeable to have hospice services as well. Code status discussion, and he has decided he does not want any heroic measures or resuscitation at the end of life. Code status transitioned to DNRCC. D/W Dr. Ceballos. Possible d/c over the weekend. Referral called to [facility]. - Time Spent With Patient Total time spent is greater than 50% in coordination of care (as documented) at patient's floor/unit and/or counseling patient: - Subjective Interval history: Patient awake, alert, and oriented x 3. Very conversant today. States he is breathing better and denies pain. States he's "lost the last few days". Asking for beer he brought with him to the hospital. Mother and brother are at bedside. - Constitutional Vitals: Abnormal lab results RBC 3.50 M/mcL (4.19-5.50) L 10/27/16 09:16 Hgb 12.0 g/dL (12.9-16.9) L 10/27/16 09:16 Hct 33.7 % (37.5-50.1) L 10/27/16 09:16 MCH 34.3 pg (28.0-33.3) H 10/27/16 09:16 MCHC 35.6 g/dL (31.6-35.5) H 10/27/16 09:16 ESR 49 mm/hr (0-10) H 10/24/16 16:39 PT 16.0 Seconds (9.4-12.1) H 10/26/16 11:15 Potassium 3.1 mEq/L (3.5-4.5) L 10/27/16 09:16 BUN 34 mg/dL (8-26) H 10/27/16 09:16 BUN/Creatinine Ratio 34 (6-26) H 10/27/16 09:16 POC Glucose 103 (58-89) H 10/27/16 05:35 Lactic Acid 2.5 mmol/L (0.5-2.2) H 10/24/16 16:39 Calcium 11.5 mg/dL (8.6-10.8) H 10/27/16 09:16 Ionized Calcium 2.02 mmol/L (1.15-1.35) H 10/25/16 04:15 Magnesium 1.3 mg/dL (1.6-2.6) L 10/25/16 04:15 Albumin 2.8 g/dL (3.5-5.0) L 10/24/16 16:39 Globulin 4.7 g/dL (2.4-3.5) H 10/24/16 16:39 Albumin/Globulin Ratio 0.6 (1.1-2.2) L 10/24/16 16:39 Prealbumin 5.0 mg/dL (18.0-45.0) L 10/26/16 04:36 Urine Ketones 15 mg/dL (Negative) H 10/25/16 03:55 Fluid Appearance Slightly Hazy (Clear) A 10/26/16 15:43 General appearance: Present: no acute distress - Respiratory Additional comments: Rhonchi throughout but sounds improved from yesterday. Breath sounds RLL. - Cardiovascular Cardiovascular exam: Present: +S1, +S2 - GI/Abdominal GI/Abdominal exam: Present: normal bowel sounds, soft - Extremities Exam Extremities exam: Present: normal capillary refill, normal inspection - Neurological Exam Neurological exam: Present: alert, oriented X3, strengths equal and symetr throughout - Skin Skin exam: Present: dry, normal color, warm Palliative Quality Palliative Quality: Screen for Code Status: NA (pt confused), Screen for Goals of Care: NA, Screen for Pain: Yes, If Pain Regimen Started, Initiate Bowel Regimen: NA, Screen for Nausea/Vomitting: Yes Code Status: 10/27/16 10:40 DNR [Resuscitation Status: Active] [RES] Routine Comment: Resuscitation Status: DNR-Comfort Care - Labs CBC & Chem 7: 10/27/16 09:16 10/27/16 09:16 Labs: Laboratory Results - last 24 hr 10/26/16 10/26/16 10/26/16 10:19 11:15 15:43 WBC RBC Hgb Hct MCV MCH MCHC RDW Plt Count MPV Immature Gran % Seg Neutrophils % Lymphocytes % Monocytes % Eosinophils % Basophils % Neutrophils # Lymphocytes # Monocytes # Eosinophils # Basophils # PT 16.0 H INR 1.5 Sodium 134 L Potassium 3.4 L Chloride 104 Carbon Dioxide 24 BUN 36 H Creatinine 0.79 Est GFR ( Amer) > 60 Est GFR (Non-Af Amer) > 60 BUN/Creatinine Ratio 46 H Glucose 120 H POC Glucose Calculated Osmolality 288 Calcium 11.8 H Fluid Source pleural fluid Fluid Volume 950 Fluid Appearance Slightly Hazy A Fluid RBC 0.009 Fld Tot Nucleated Cell 441 Fluid Seg Neutrophil % 52.0 Fld Band Neutrophil % Test Not Performed Fluid Lymphocytes % 27.0 Fluid Monocytes % 10.0 Fluid Eosinophils % Test Not Performed Fluid Basophils % Test Not Performed Fluid Other Cells % 11.0 Pleural LDH Pleural Glucose 10/26/16 10/26/16 10/27/16 15:43 17:06 00:02 WBC RBC Hgb Hct MCV MCH MCHC RDW Plt Count MPV Immature Gran % Seg Neutrophils % Lymphocytes % Monocytes % Eosinophils % Basophils % Neutrophils # Lymphocytes # Monocytes # Eosinophils # Basophils # PT INR Sodium Potassium Chloride Carbon Dioxide BUN Creatinine Est GFR ( Amer) Est GFR (Non-Af Amer) BUN/Creatinine Ratio Glucose POC Glucose 119 H 109 H Calculated Osmolality Calcium Fluid Source Fluid Volume Fluid Appearance Fluid RBC Fld Tot Nucleated Cell Fluid Seg Neutrophil % Fld Band Neutrophil % Fluid Lymphocytes % Fluid Monocytes % Fluid Eosinophils % Fluid Basophils % Fluid Other Cells % Pleural LDH 678 Pleural Glucose 111 10/27/16 10/27/16 10/27/16 05:35 09:16 09:16 WBC 8.8 RBC 3.50 L Hgb 12.0 L Hct 33.7 L MCV 96.3 MCH 34.3 H MCHC 35.6 H RDW 13.2 Plt Count 222 MPV 9.4 Immature Gran % 0.5 Seg Neutrophils % 70.5 Lymphocytes % 16.2 Monocytes % 12.8 Eosinophils % 0.0 Basophils % 0.0 Neutrophils # 6.2 Lymphocytes # 1.4 Monocytes # 1.1 Eosinophils # 0.0 Basophils # 0.0 PT INR Sodium 138 Potassium 3.1 L Chloride 102 Carbon Dioxide 26 BUN 34 H Creatinine 1.01 Est GFR ( Amer) > 60 Est GFR (Non-Af Amer) > 60 BUN/Creatinine Ratio 34 H Glucose 97 POC Glucose 103 H Calculated Osmolality 294 Calcium 11.5 H Fluid Source Fluid Volume Fluid Appearance Fluid RBC Fld Tot Nucleated Cell Fluid Seg Neutrophil % Fld Band Neutrophil % Fluid Lymphocytes % Fluid Monocytes % Fluid Eosinophils % Fluid Basophils % Fluid Other Cells % Pleural LDH Pleural Glucose - Impressions Impressions Thoracentesis Ultrasound 10/26/16 00:00 IMPRESSION: Successful ultrasound guided thoracentesis. D/ / Dusty Dennis MD / Dusty Dennis MD Interpreting Provider: Dusty Dennis MD Chest X-Ray 10/26/16 10:52 IMPRESSION: Improved aeration in the right chest status post thoracentesis, with a persistent moderate effusion identified. No pneumothorax. D/ / Alexi Rios MD / Alexi Rios MD Interpreting Provider: Alexi Rios MD - ABG Interpretation ABG results: PT/INR, D-dimer PT 16.0 Seconds (9.4-12.1) H 10/26/16 11:15 Consult Discharge Plan - Plan Referrals: Peng Jarquin [Non-Partnered Physician] -
[2016-10-27] MEDS: Budesonide/Formoterol 160/4.5 MDI IH SCH ×2 (11:38→20:02)
[2016-10-27] MEDS: Beer can PO SCH ×2 (15:00→20:16)
--- NOTE | 2016-10-27 17:27 | Internal Med Progress Note ---
Date of Encounter: 10/27/16 Time of Encounter: 17:25 - Assessment and plan (1) Clostridium difficile diarrhea Current Visit: Yes Status: Acute Assessment and plan: Patient diagnosed with c.diff 10/16/2016 and started on PO flagyl. Will conitnue IV flagyl for now. Diarrhea has improved, will complete a course of antibiotics total of 14 days (2) Hypercalcemia of malignancy Current Visit: Yes Status: Acute Assessment and plan: was given Zomeda at ED. Patient was treated with IV fluids, calcium today much improved at 11. 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 (3) Hyponatremia Current Visit: Yes Status: Acute Assessment and plan: Sodium level at 138 today. Improved with IV fluids, less likely SIADH, urine sodium is 21. (4) Squamous cell carcinoma of lung, stage III Current Visit: Yes Status: Acute Assessment and plan: Patient with history of squamous cell carcinoma of the lung diagnosed 04/2016. Patient is s/p thoracic chemotherapy with cisplatin/etoposide finished 06/2016. Last CT scan done 10/03/2016 showed increase in bilateral lung nodules, new pleural effusion and new inferior anterior mediastinal mass. Last oncology appointment on 10/16/2016 it states that patient was not ready to change his code status at that time or consider hospice. 1. Consult placed to oncology - Dr. Villalpando called from ED, will follow recommendation 2. Supportive care with supplemental oxygen as needed, pain medication, At this time, given the progression of the disease and patinet debilitating general condition, amanda may not be a good candidate for restarting chemotherapy. this was discussed with Dr. Villalpando , who agreed. palliative was consulted and amanda wishes to be dc to [facility]. Qualifiers: Laterality: right Qualified Code(s): C34.91 - Malignant neoplasm of unspecified part of right bronchus or lung (5) Severe protein-calorie malnutrition Current Visit: No Status: Chronic Assessment and plan: nutrition consult, will follow recommendtaions possibel from malignancy (6) HAP (hospital-acquired pneumonia) Current Visit: Yes Status: Acute Assessment and plan: CXR shows new infiltrate on the left upper lobe. given immunocompromised state with concurrent chemotherapy and progresion of the disease, was started emperically on broad spectrum antibiotics We will continue IV antibiotics for 1 more day. Patient still requiring 4.5 L of oxygen, titrate and wean off as able. We will discharge tomorrow on oral antibiotics. (7) Counseling regarding advanced care planning and goals of care Current Visit: Yes Status: Acute Assessment and plan: Had a family meeting today with palliative and the family members. Patient agrees to be discharged to [facility] with hospice services. apprecite pallitive input. - Time Spent With Patient 25 - 35 minutes - Subjective Interval history: seen at the bedside, patient seems to be much better today. Requiring 4.5 L of oxygen to maintain sats 90-93%. IV fluids and was continued for hypercalcemia secondary to malignancy, calcium today improved at 11. reports that he ate better today - Constitutional Vitals: Temp Pulse Resp BP Pulse Ox 97.7 F 94 15 99/72 100 10/27/16 16:43 10/27/16 16:43 10/27/16 16:43 10/27/16 16:43 10/27/16 16:43 General appearance: Present: cachectic, A&O X 3, no acute distress. Absent: cooperative Exam: HEENT anicteric sclera dry mucosa Neck no palpable lymphadenopathy Chest decreased breath sounds in the right side, mild creptns on the left side. CVS S1S2 reg rate and rhythm Abdomen soft nontender no hepatosplenomegaly Extremities no edema. neuro- alert and awake,no focal neuro defecits. Internal Medicine: Result - Labs CBC & Chem 7: 10/27/16 09:16 10/27/16 09:16 Labs: Short CBC 10/27/16 Range/Units 09:16 WBC 8.8 (4.3-11.1) K/mcL Hgb 12.0 L (12.9-16.9) g/dL Hct 33.7 L (37.5-50.1) % Plt Count 222 (140-400) K/mcL Neutrophils # 6.2 (1.6-8.9) K/mcL BMP 10/27/16 09:16 Sodium 138 Potassium 3.1 L Chloride 102 Carbon Dioxide 26 BUN 34 H Creatinine 1.01 Glucose 97 Calcium 11.5 H - ABG Interpretation ABG results: PT/INR, D-dimer PT 16.0 Seconds (9.4-12.1) H 10/26/16 11:15 - Impressions Impressions Chest X-Ray 10/27/16 12:03 IMPRESSION: 1. Right pleural effusion with associated volume loss in the right lung base, stable. 2. Pleural-based masses, invading the chest wall along the right paratracheal stripe, and left lung apex, stable. 3. There is an infiltrate noted in the left upper lobe of the lung, concerning for pneumonia. Attention on follow-up imaging is recommended. D/ / 10/27/2016 12:47:19 Herson Joshua MD / keena Interpreting Provider: Herson Joshua MD Consult Discharge Plan - Plan Referrals: Peng Jarquin [Non-Partnered Physician] -
[2016-10-27] MEDS: Vancomycin 500 MG in D5% in Water (Mini-Bag+) 100 ML IVPB SCH (18:31)
[2016-10-28] MEDS: MetroNIDAZOLE 500 MG/100 ML 500 MG/100 ML BAG IVPB SCH ×4 (00:08→23:49)
[2016-10-28] MEDS: Piperacillin/Tazobactam 3.375 GM in D5% in Water (Mini-Bag+) 100 ML IVPB SCH ×3 (04:45→22:18)
[2016-10-28] MEDS: *HR* Enoxaparin 40 MG/0.4 ML SYRINGE SQ SCH (04:47)
[2016-10-28] MEDS: Budesonide/Formoterol 160/4.5 MDI IH SCH ×2 (08:11→20:03)
--- NOTE | 2016-10-28 08:35 | Discharge Summary ---
Date of Encounter: 10/28/16 Time of Encounter: 08:31 - Discharge Diagnosis (1) Clostridium difficile diarrhea Priority: Primary Status: Acute (2) Hypercalcemia of malignancy Priority: Primary Status: Acute (3) Hyponatremia Priority: Secondary Status: Acute (4) Squamous cell carcinoma of lung, stage III Priority: Primary Status: Acute Qualifiers: Laterality: right Qualified Code(s): C34.91 - Malignant neoplasm of unspecified part of right bronchus or lung (5) Severe protein-calorie malnutrition Priority: Secondary Status: Chronic (6) HAP (hospital-acquired pneumonia) Priority: Primary Status: Acute (7) Counseling regarding advanced care planning and goals of care Priority: Primary Status: Acute - Discharge Medications Prescriptions: OxyCODONE Immed Rel [Roxicodone 5 MG] 10 mg PO Q8HR PRN #30 tablet PRN Reason: Pain Dronabinol [Marinol] 2.5 mg PO BID #60 capsule Levofloxacin 500 mg PO DAILY #7 tablet Home Medications: Prochlorperazine Maleate [Compazine] 10 mg PO Q8HR PRN #90 tablet 07/21/16 [Rx] Furosemide [Lasix] 40 mg PO DAILY #30 tablet 08/01/16 [Rx] PredniSONE 10 mg PO DAILY 18 Days 08/01/16 [Rx] Lactose-Reduced Food [Ensure High Protein] 1 bottle PO TID #90 can 08/28/16 [Rx] Budesonide/Formoterol 160/4.5 [Symbicort 160/4.5] 1 puff IH BIDR #1 hfa.aer.ad 09/19/16 [Rx] Metoprolol [Lopressor] 12.5 mg PO BID #60 tablet 09/19/16 [Rx] Ondansetron [Zofran] 4 mg PO Q8HR PRN #90 tablet 09/19/16 [Rx] Dronabinol [Marinol] 2.5 mg PO BID #60 capsule 10/16/16 [Rx] OxyCODONE Immed Rel [Roxicodone 5 MG] 10 mg PO Q8HR PRN #90 tablet 10/16/16 [Rx] Aspirin Enteric Coated [Aspirin EC] 81 mg PO DAILY 10/24/16 [History] Atorvastatin Calcium [Lipitor] 20 mg PO HS 10/24/16 [History] Folic Acid 1 mg PO DAILY 10/24/16 [History] Dronabinol [Marinol] 2.5 mg PO BID #60 capsule 10/28/16 [Rx] Levofloxacin 500 mg PO DAILY #7 tablet 10/28/16 [Rx] OxyCODONE Immed Rel [Roxicodone 5 MG] 10 mg PO Q8HR PRN #30 tablet 10/28/16 [Rx] Allergies/Adverse Reactions: Allergies No Known Allergies Allergy (Verified 10/16/16 08:51) Procedures/tests Complete & Pending: Procedures Performed prior 72 hours Category Date Time Status IR thoracentesis ultrasound [IR] Routine IR 10/26/16 Completed Date of admission: 10/24/16 21:24 Primary care physician: PCP NO Consults: 10/26/16 09:38 Consult to Palliative Care [CONS] Routine Comment: Consulting Provider: Palliative Care [place] 10/26/16 10:14 Consult to Interventional Radiology [CONS] Routine Consulting Provider: Radiology Interventional [place] Reason for Consult: please evaluate for IR guided thoracentesis of large right sided pleural effusion. thank you Call Completed: Yes Discharging clinician: Dino Ceballos Anticipated date of discharge: 10/28/16 - Patient Status Disposition: Transfer Inpatient Rehab Fac Condition: Good Functional capacity at discharge: bed bound Overall status at discharge: patient is progressing back to baseline - Discharge Instructions Follow Up With: Peng Jarquin [Non-Partnered Physician] - - Diet and Activity Activity: as per physical therapy Diet: advance to your usual diet Interval History: Mr. Campoverde is a 56 year old male with PMH including lung cancer, GI bleed, chronic anemia, and EtOH use who presents to the ED for generalized weakness. Patient is generally refusing to communicate with staff or physicians on the floor so most history and review of symptoms obtained from ED note and previous documentation. He does shake his head when asked if he has any pain, chest pain , or shortness of breath. 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 Patient is s/p thoracic chemotherapy with cisplatin/etoposide finished 06/2016. Last CT scan done 10/03/2016 showed increase in bilateral lung nodules, new pleural effusion and new inferior anterior mediastinal mass. Patient was also recently diagnosed with C. diff on 10/16/2016 and started on PO flagyl In the ED, patient was afebrile, vital signs within normal limits. Labs revealed sodium of 124, calcium of 15.6 and lactic acid of 2.5. Dr. Villalpando ( oncology) consulted from the ED. She recommended admission, fluid bolus, dexamethasone and zomeda. amanda was admitted for acute severe hypercalcemia most likely 2/2 malignancy he was further tretaed with IVF which brought the calcium down in 11.5, however he got fluid overload and has now large pleurla effusion with new onset pneumonia, for which he needed therapeutic thoracentesis and IV antibiotics. he still requires 4-5 l of oxygen to maintain his sats >90%. given the progression of the disease(lung cancer) with overall decline, he may not be a candidate for chemotherapy at this time. This was discussed with the family and amanda along with the family has agreed for comfort care and hospice. palliative care was involved and plan is to dc to [facility] with hospice care. Hospital course: Mr. Campoverde is a 56 year old male Time spent discussing smoking cessation with patient: more than 10 minutes - Time Spent with Patient Total time spent providing and/or coordinating discharge services: Greater than 30 minutes - Constitutional Vitals: Temp Pulse Resp BP Pulse Ox 98.5 F 98 18 95/67 93 L 10/28/16 07:25 10/28/16 07:25 10/28/16 08:13 10/28/16 07:25 10/28/16 08:13 General appearance: Present: cachectic, A&O X 3, no acute distress. Absent: cooperative Exam: - Head Head exam: Present: atraumatic, normal inspection, normocephalic - Eye Eye exam: Present: normal appearance - ENT ENT exam: Present: mucous membranes dry - Respiratory Respiratory exam: Absent: decreased breath sounds, minimal crepts at the bases of the left lung. - Cardiovascular Cardiovascular exam: Present: RRR - GI/Abdominal GI/Abdominal exam: Present: soft. Absent: rebound, rigid, tenderness - Extremities Exam Extremities exam: Present: normal inspection. Absent: pedal edema - Neurological Exam Neurological exam: Present: alert
[2016-10-28] MEDS: Aspirin Enteric Coated 81 MG Tablet PO SCH (10:07)
[2016-10-28] MEDS: Beer can PO SCH ×2 (10:07→18:48)
[2016-10-28] MEDS: Folic Acid 1 MG TABLET PO SCH (10:08)
[2016-10-28] MEDS: Vancomycin 500 MG in D5% in Water (Mini-Bag+) 100 ML IVPB SCH (16:45)
[2016-10-29] MEDS: Piperacillin/Tazobactam 3.375 GM in D5% in Water (Mini-Bag+) 100 ML IVPB SCH ×3 (05:03→21:09)
[2016-10-29] MEDS: *HR* Enoxaparin 40 MG/0.4 ML SYRINGE SQ SCH (05:03)
[2016-10-29] MEDS: *HR* OxyCODONE Immed Rel 5 MG TABLET PO PRN ×2 (05:07→18:27)
[2016-10-29] MEDS: Ipratropium/Albuterol Neb 3 ML IH PRN (05:50)
[2016-10-29] MEDS: Folic Acid 1 MG TABLET PO SCH (09:03)
[2016-10-29] MEDS: Aspirin Enteric Coated 81 MG Tablet PO SCH (09:04)
[2016-10-29] MEDS: Beer can PO SCH ×3 (09:04→21:11)
[2016-10-29] MEDS: MetroNIDAZOLE 500 MG/100 ML 500 MG/100 ML BAG IVPB SCH ×2 (09:04→16:45)
[2016-10-29] MEDS: Budesonide/Formoterol 160/4.5 MDI IH SCH ×2 (09:37→20:07)
--- NOTE | 2016-10-29 10:15 | Internal Med Progress Note ---
Date of Encounter: 10/29/16 Time of Encounter: 10:13 - Assessment and plan (1) Clostridium difficile diarrhea Current Visit: Yes Status: Acute Assessment and plan: Patient diagnosed with c.diff 10/16/2016 and started on PO flagyl. Will conitnue IV flagyl for now. Diarrhea has improved, will complete a course of antibiotics total of 14 days (2) Hypercalcemia of malignancy Current Visit: Yes Status: Acute Assessment and plan: was given Zomeda at ED. Patient was treated with IV fluids, calcium today much improved at 11.5 most likely a paraneoplastic syndrome from lung cancer, oncology has been consulted. no further intervention at this time. (3) Hyponatremia Current Visit: Yes Status: Acute Assessment and plan: Sodium level at 138 Improved , less likely SIADH, urine sodium is 21. (4) Squamous cell carcinoma of lung, stage III Current Visit: Yes Status: Acute Assessment and plan: Patient with history of squamous cell carcinoma of the lung diagnosed 04/2016. Patient is s/p thoracic chemotherapy with cisplatin/etoposide finished 06/2016. Last CT scan done 10/03/2016 showed increase in bilateral lung nodules, new pleural effusion and new inferior anterior mediastinal mass. Last oncology appointment on 10/16/2016 it states that patient was not ready to change his code status at that time or consider hospice. 1. Consult placed to oncology - Dr. Villalpando called from ED, will follow recommendation 2. Supportive care with supplemental oxygen as needed, pain medication, At this time, given the progression of the disease and samuelnet debilitating general condition, amanda may not be a good candidate for restarting chemotherapy. this was discussed with Dr. Villalpando , who agreed. HE has a poor prognosis and and this was discussed with the family. palliative was consulted and amanda wishes to be dc to [facility] with hospice care Qualifiers: Laterality: right Qualified Code(s): C34.91 - Malignant neoplasm of unspecified part of right bronchus or lung (5) Severe protein-calorie malnutrition Current Visit: No Status: Chronic Assessment and plan: nutrition consult, will follow recommendtaions possibel from malignancy (6) HAP (hospital-acquired pneumonia) Current Visit: Yes Status: Acute Assessment and plan: CXR shows new infiltrate on the left upper lobe. given immunocompromised state with concurrent chemotherapy and progresion of the disease, was started emperically on broad spectrum antibiotics We will continue IV antibiotics for now. Patient still requiring 4.5 L of oxygen, titrate and wean off as able. We will discharge tomorrow on oral antibiotics. (7) Counseling regarding advanced care planning and goals of care Current Visit: Yes Status: Acute Assessment and plan: Had a family meeting today with palliative and the family members. Patient agrees to be discharged to [facility] with hospice services. apprecite pallitive input. - Time Spent With Patient 25 - 35 minutes - Subjective Interval history: seen at the bedside, patient seems to be doing fine. Requiring 4.5 L of oxygen to maintain sats 90-93%. does not have appetite today, was planned on dc yest, however rose need to wait till sunday for approval to go to [facility]. - Constitutional Vitals: Temp Pulse Resp BP Pulse Ox 98.5 F 99 18 98/70 91 L 10/29/16 07:39 10/29/16 07:39 10/29/16 07:39 10/29/16 07:39 10/29/16 07:39 General appearance: Present: cachectic, A&O X 3, no acute distress. Absent: cooperative Exam: HEENT anicteric sclera dry mucosa Neck no palpable lymphadenopathy Chest decreased breath sounds in the right side, mild creptns on the left side. CVS S1S2 reg rate and rhythm Abdomen soft nontender no hepatosplenomegaly Extremities no edema. neuro- alert and awake,no focal neuro defecits. Internal Medicine: Result - Labs CBC & Chem 7: 10/27/16 09:16 10/27/16 09:16 - ABG Interpretation ABG results: PT/INR, D-dimer PT 16.0 Seconds (9.4-12.1) H 10/26/16 11:15 Consult Discharge Plan - Plan Referrals: Peng Jarquin [Non-Partnered Physician] - Prescriptions: OxyCODONE Immed Rel [Roxicodone 5 MG] 10 mg PO Q8HR PRN #30 tablet PRN Reason: Pain Dronabinol [Marinol] 2.5 mg PO BID #60 capsule Levofloxacin 500 mg PO DAILY #7 tablet
[2016-10-29] MEDS ORDERED: Furosemide 40 MG/4 ML VIAL IVP ONE (11:25)
--- NOTE | 2016-10-29 12:56 | Palliative Progress Note ---
Date of Encounter: 10/29/16 Time of Encounter: 12:53 - Assessment and plan (1) Cancer associated pain Current Visit: Yes Status: Acute Assessment and plan: Continue with oxycodone 10mg every 8 hours as needed. Mr. Campoverde has used one dose in the past 24 hours. Continue to monitor. (2) Counseling regarding advanced care planning and goals of care Current Visit: Yes Status: Acute Assessment and plan: Awaiting insurance approval for ECF placement. Patient to enroll in hospice services upon discharge. (3) Severe protein-calorie malnutrition Current Visit: No Status: Chronic Assessment and plan: Encourage meal supplements and high protein intake. (4) Dyspnea Current Visit: No Status: Resolved Assessment and plan: Supportive treatments, supplemental oxygen Qualifiers: Dyspnea type: unspecified Qualified Code(s): R06.00 - Dyspnea, unspecified - Time Spent With Patient Total time spent is greater than 50% in coordination of care (as documented) at patient's floor/unit and/or counseling patient: - Subjective Interval history: Mr. Feliz is lying in bed. He reports breathing is near baseline. Denies pain or n/v/d/c. Adequate urine output. - Constitutional Vitals: Abnormal lab results RBC 3.50 M/mcL (4.19-5.50) L 10/27/16 09:16 Hgb 12.0 g/dL (12.9-16.9) L 10/27/16 09:16 Hct 33.7 % (37.5-50.1) L 10/27/16 09:16 MCH 34.3 pg (28.0-33.3) H 10/27/16 09:16 MCHC 35.6 g/dL (31.6-35.5) H 10/27/16 09:16 ESR 49 mm/hr (0-10) H 10/24/16 16:39 PT 16.0 Seconds (9.4-12.1) H 10/26/16 11:15 Potassium 3.1 mEq/L (3.5-4.5) L 10/27/16 09:16 BUN 34 mg/dL (8-26) H 10/27/16 09:16 BUN/Creatinine Ratio 34 (6-26) H 10/27/16 09:16 POC Glucose 97 (58-89) H 10/27/16 18:18 Lactic Acid 2.5 mmol/L (0.5-2.2) H 10/24/16 16:39 Calcium 11.5 mg/dL (8.6-10.8) H 10/27/16 09:16 Ionized Calcium 2.02 mmol/L (1.15-1.35) H 10/25/16 04:15 Magnesium 1.3 mg/dL (1.6-2.6) L 10/25/16 04:15 Albumin 2.8 g/dL (3.5-5.0) L 10/24/16 16:39 Globulin 4.7 g/dL (2.4-3.5) H 10/24/16 16:39 Albumin/Globulin Ratio 0.6 (1.1-2.2) L 10/24/16 16:39 Prealbumin 5.0 mg/dL (18.0-45.0) L 10/26/16 04:36 Urine Ketones 15 mg/dL (Negative) H 10/25/16 03:55 Fluid Appearance Slightly Hazy (Clear) A 10/26/16 15:43 General appearance: Present: cooperative, no acute distress Exam: 56 year old male patient, cooperative but with minimal conversation. - Respiratory Respiratory exam: Present: decreased breath sounds. Absent: accessory muscle use, respiratory distress Additional comments: On supplemental oxygen. - Cardiovascular Cardiovascular exam: Present: RRR - GI/Abdominal GI/Abdominal exam: Present: soft. Absent: tenderness - Extremities Exam Extremities exam: Absent: pedal edema - Neurological Exam Neurological exam: Present: alert, oriented X3 - Skin Skin exam: Present: dry, warm Palliative Quality Palliative Quality: Screen for Code Status: NA (pt confused), Screen for Goals of Care: NA, Screen for Pain: Yes, If Pain Regimen Started, Initiate Bowel Regimen: NA, Screen for Nausea/Vomitting: Yes Code Status: 10/27/16 10:40 DNR [Resuscitation Status: Active] [RES] Routine Comment: Resuscitation Status: DNR-Comfort Care - Labs CBC & Chem 7: 10/27/16 09:16 10/27/16 09:16 - ABG Interpretation ABG results: PT/INR, D-dimer PT 16.0 Seconds (9.4-12.1) H 10/26/16 11:15 Consult Discharge Plan - Plan Referrals: Peng Jarquin [Non-Partnered Physician] - Prescriptions: OxyCODONE Immed Rel [Roxicodone 5 MG] 10 mg PO Q8HR PRN #30 tablet PRN Reason: Pain Dronabinol [Marinol] 2.5 mg PO BID #60 capsule Levofloxacin 500 mg PO DAILY #7 tablet
[2016-10-29] MEDS: Vancomycin 500 MG in D5% in Water (Mini-Bag+) 100 ML IVPB SCH (18:18)
[2016-10-29 23:53] VITALS: BP 96/69
[2016-10-30] MEDS: MetroNIDAZOLE 500 MG/100 ML 500 MG/100 ML BAG IVPB SCH (00:01)
--- NOTE | 2016-10-30 03:24 | Event Note ---
Date of Encounter: 10/30/16 Time of Encounter: 02:40 I was paged at 02:34 to see the pt, who's code status is DNR-CC and has agonal breathing. At about 02:37, pt had no respiratory effort, no heart sounds for 2 minutes and pupils are dilated. certified. R.I.P
[2016-10-30] MEDS ORDERED: Furosemide 40 MG/4 ML VIAL IVP SCH (09:00)
== END 2016-10-30 02:40 | disposition expired | DRG 136 ==
LOC: EMEROO 13:14 → 3ANU 13:14 → SUATTDRO 21:24 → 3ANU 10-25 13:13
PROVIDERS: ADMIT Internal Medicine; ATTEND Internal Medicine Endocrinology, Diabetes & Metabolism